=== PATIENT | female | born 1975 | race Caucasian/White ===

== ENCOUNTER → 2020-06-25 10:47 | Outpatient (BNVA) | payer SELFPAY | PROVIDERS: PCP Pediatrics; Referring Provider Pediatrics; Visit Provider Surgery | DX: E66.01 Morbid (severe) obesity due to excess calories (principal); Z68.43 Body mass index [BMI] 50.0-59.9, adult | CPT/HCPCS: 99214 ==

== ENCOUNTER 2020-06-29 13:16 | Outpatient (REF) | payer OTHER, SELFPAY ==
[2020-06-29 15:21] LABS: Iron 70 mcg/dL (30-160); Percent Iron Saturation 19 % (15-50); Total Iron Binding Capacity 377 mcg/dL (228-428); Unsaturated Iron Binding 307 ug/dL
[2020-07-03 12:32] LABS: Vitamin B1 <6 nmol/L (8-30)
== END 2020-06-29 13:17 | disposition home or self-care (01) ==
LOC: HO.LAB 13:16
PROVIDERS: Visit Provider Surgery
DX: E51.9 Thiamine deficiency, unspecified (principal); E61.1 Iron deficiency
CPT/HCPCS: 83540; 84425

== ENCOUNTER → 2020-07-19 13:08 | Outpatient (BNVA) | payer SELFPAY | PROVIDERS: PCP Pediatrics; Visit Provider Physician Assistant | DX: E66.01 Morbid (severe) obesity due to excess calories (principal); Z68.43 Body mass index [BMI] 50.0-59.9, adult | CPT/HCPCS: 99212 ==

== ENCOUNTER → 2020-08-09 12:47 | Outpatient (BNVA) | payer SELFPAY | PROVIDERS: Visit Provider Physician Assistant | DX: E66.01 Morbid (severe) obesity due to excess calories (principal); Z68.42 Body mass index [BMI] 45.0-49.9, adult | CPT/HCPCS: 99212 ==

== ENCOUNTER 2020-08-09 13:39 | Outpatient (REF) | payer OTHER, SELFPAY ==
[2020-08-13 11:19] LABS: Vitamin B1 17 nmol/L (8-30)
== END 2020-08-09 13:40 | disposition home or self-care (01) ==
LOC: HO.LAB 13:39
PROVIDERS: PCP Pediatrics; Visit Provider Surgery
DX: Z01.818 Encounter for other preprocedural examination (principal); E51.9 Thiamine deficiency, unspecified
CPT/HCPCS: 84425

== ENCOUNTER → 2020-08-16 08:20 | Outpatient (BNVA) | payer OTHER, SELFPAY | PROVIDERS: PCP Pediatrics; Referring Provider Pediatrics; Visit Provider Physician Assistant | DX: Z76.89 Persons encountering health services in other specified circumstances (principal) ==

== ENCOUNTER → 2020-08-23 08:34 | Outpatient (BNVA) | payer OTHER, SELFPAY | PROVIDERS: PCP Pediatrics; Referring Provider Pediatrics; Visit Provider Physician Assistant | DX: Z76.89 Persons encountering health services in other specified circumstances (principal) ==

== ENCOUNTER → 2020-09-06 09:09 | Outpatient (BNVA) | payer OTHER, SELFPAY | PROVIDERS: PCP Pediatrics; Visit Provider Physician Assistant | DX: Z76.89 Persons encountering health services in other specified circumstances (principal) ==

== ENCOUNTER → 2020-09-07 15:12 | Outpatient (BNVA) | payer SELFPAY | PROVIDERS: PCP Pediatrics; Visit Provider Internal Medicine Pulmonary Disease | DX: J45.909 Unspecified asthma, uncomplicated (principal); G47.33 Obstructive sleep apnea (adult) (pediatric); Z91.09 Other allergy status, other than to drugs and biological substances; Z99.89 Dependence on other enabling machines and devices; Z87.891 Personal history of nicotine dependence | CPT/HCPCS: 99212 ==

== ENCOUNTER → 2020-09-14 08:25 | Outpatient (BNVA) | payer OTHER, SELFPAY | PROVIDERS: PCP Pediatrics; Visit Provider Surgery | DX: Z76.89 Persons encountering health services in other specified circumstances (principal) ==

== ENCOUNTER → 2021-07-15 11:17 | Outpatient (BNVA) | payer OTHER, SELFPAY | PROVIDERS: PCP Pediatrics; Visit Provider Internal Medicine Pulmonary Disease ==

== ENCOUNTER 2022-03-18 20:53 | Emergency (ER) | payer OTHER, SELFPAY ==
--- NOTE | ~2022-03-18 | US_ITS ---
EXAMINATION: US PELVIS CLINICAL INFORMATION: Left lower pelvic pain. COMPARISON: Abdominal CT 03/18/2022 TECHNIQUE: Ultrasound of the pelvis is performed using both transabdominal and transvaginal transducers along with Doppler. Transvaginal imaging is performed due to inadequate visualization transabdominally. FINDINGS: Uterus: The uterus is anteverted and measures 9.5 x 5.4 x 5.6 cm. The double wall endometrial thickness is 1.5 mm. The uterus is smooth in contour and has normal myometrial echogenicity. No visible fibroid. Adnexa: Both ovaries are visualized. There is normal color flow to the adnexa. There is no ovarian torsion. Trace pelvic free fluid. Right ovary measures 3.9 x 1.8 x 2.9 cm. Corpus luteal cyst measuring 1.6 cm. Left ovary measures 4.4 x 2.5 x 2.9 cm. Dominant follicle measuring 2.1 cm. US/US pelvic ovarian doppler IMPRESSION: No suspicious findings of the pelvis. No evidence of active ovarian torsion. Trace pelvic free fluid may be physiologic.
--- NOTE | ~2022-03-18 | CT_ITS ---
EXAMINATION: CT ABDOMEN AND PELVIS WITHOUT CONTRAST CLINICAL INFORMATION: Left lower quadrant pain COMPARISON: None TECHNIQUE: Multidetector volumetric imaging was performed from the superior aspect of the liver through the pubic symphysis. Sagittal and coronal reformatted images were obtained on the technologist's workstation. This CT examination was performed using dose optimization techniques as appropriate, variously including the following: *Automated exposure control *Adjustment of mA and/or kV according to patient size (this includes techniques or standardized protocols for targeted exams where dose is matched to indication/reason for exam; i.e. extremities or head) *Use of iterative reconstruction technique DLP: 1034 mGy-cm FINDINGS: LUNG BASES: The visualized lung bases are unremarkable. LIVER, GALLBLADDER, AND BILIARY TREE: The liver is normal in size, shape, and attenuation. No focal hepatic lesion or biliary ductal dilatation is present. Cholecystectomy. PANCREAS: Unremarkable. SPLEEN: Unremarkable. ADRENAL GLANDS: Unremarkable. KIDNEYS AND URETERS: The kidneys are normal in size, shape, and attenuation. No hydronephrosis, hydroureter, or calculi seen. No perinephric stranding. BLADDER: Unremarkable. GASTROINTESTINAL TRACT: The stomach is unremarkable. Normal caliber small bowel. No obstruction. No colonic wall thickening or inflammatory change. Normal appendix. No free air or free fluid. ABDOMINAL WALL: No significant hernia is appreciated. LYMPH NODES: Normal. VASCULAR: Normal caliber aorta. 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 PELVIC VISCERA: The uterus and adnexa are unremarkable. OSSEOUS STRUCTURES: No acute or suspicious osseous abnormality. Degenerative changes at L4-L5 with disc space narrowing and vacuum disc phenomenon. CT/CT abdomen pelvis wo con IMPRESSION: No acute findings in the abdomen or pelvis. No acute inflammatory changes. Fleischner guidelines were followed.
--- NOTE | ~2022-03-18 | US_ITS ---
EXAMINATION: US PELVIS CLINICAL INFORMATION: Left lower pelvic pain. COMPARISON: Abdominal CT 03/18/2022 TECHNIQUE: Ultrasound of the pelvis is performed using both transabdominal and transvaginal transducers along with Doppler. Transvaginal imaging is performed due to inadequate visualization transabdominally. FINDINGS: Uterus: The uterus is anteverted and measures 9.5 x 5.4 x 5.6 cm. The double wall endometrial thickness is 1.5 mm. The uterus is smooth in contour and has normal myometrial echogenicity. No visible fibroid. Adnexa: Both ovaries are visualized. There is normal color flow to the adnexa. There is no ovarian torsion. Trace pelvic free fluid. Right ovary measures 3.9 x 1.8 x 2.9 cm. Corpus luteal cyst measuring 1.6 cm. Left ovary measures 4.4 x 2.5 x 2.9 cm. Dominant follicle measuring 2.1 cm. US/US pelvic and transvaginal IMPRESSION: No suspicious findings of the pelvis. No evidence of active ovarian torsion. Trace pelvic free fluid may be physiologic.
[2022-03-18 21:21] VITALS: BP 177/107; PULSE 111; RESP 18; TEMP 37.2; O2SAT 97; BMI 50.5
--- NOTE | 2022-03-18 22:27 | ED.ABDPAIN ---
HPI - Abdominal Pain General Chief Complaint: Abdominal Pain Stated Complaint: Sharp pain in Left stide Time Seen by Provider: 03/18/22 22:27 Source: patient Mode of arrival: ambulatory History of Present Illness HPI narrative: 46-year-old female who presents with left lower quadrant pain that radiates into the groin area has been associated with nausea and she describes as crampy with waxing and waning and is otherwise denying any diarrhea or vomiting and denies any history of renal colic. Patient also describes some difficulty with urination as well as urinary frequency. Related Data Home Medications Medication Instructions Recorded Confirmed citalopram 40 mg tablet 40 mg PO DAILY 06/25/20 09/06/20 epinephrine 0.3 mg/0.3 mL 0.3 mg IM allergies 06/25/20 09/06/20 injection, auto-injector fluticasone propionate 50 1 spray intranasal DAILY PRN 06/25/20 09/06/20 mcg/actuation nasal allergy symptoms spray,suspension (Flonase Allergy Relief) naratriptan 2.5 mg tablet 2.5 mg PO DAILY PRN 06/25/20 09/06/20 topiramate 100 mg tablet 100 mg PO DAILY 06/25/20 09/06/20 trazodone 100 mg tablet 100 mg PO BEDTIME PRN 06/25/20 09/06/20 methocarbamol 750 mg tablet 750 mg PO Q6H PRN muscle spasm 07/15/21 Previous Rx's Medication Instructions Recorded nitrofurantoin 100 mg PO Q12H 5 days #10 caps 03/19/22 monohydrate/macrocrystals 100 mg capsule (Macrobid) phenazopyridine 200 mg tablet 200 mg PO TID PRN pain 6 doses #6 03/19/22 (Pyridium) tabs Allergies Allergy/AdvReac Type Severity Reaction Status Date / Time ibuprofen Allergy Unknown unknown Verified 07/15/21 11:22 penicillin V Allergy Unknown unknown Verified 07/15/21 11:22 Review of Systems Review of Systems Pertinent positives and negatives as stated in HPI 10 point review of systems is otherwise negative. [facility] Past Medical History Source: nursing notes reviewed Medical History Anxiety Arthritis Depression GERD (gastroesophageal reflux disease) History of peptic ulcer disease Migraines Morbid obesity Morbid obesity with BMI of 50.0-59.9, adult PTSD (post-traumatic stress disorder) Surgical History H/O arthroscopy of shoulder H/O shoulder surgery History of arthroscopic knee surgery History of arthroscopic knee surgery Hx laparoscopic cholecystectomy Hx of tubal ligation S/P excision of lipoma S/P insertion of spinal cord stimulator S/P urological surgery Family History Family History Father Renal failure Gout CVD (cardiovascular disease) Heart attack Mother Arthritis Son No problems noted. Son No problems noted. Brother No problems noted. Sister No problems noted. Sister No problems noted. Social History Social History Alcohol intake: never Patient Tobacco Use Status: Current everyday Tobacco user Use of substances other than those prescribed or required for medical reasons: Yes Substance Use Type: Marijuana Substance Use Frequency: Daily Advance Directives: No Advance Directives Information Provided: No Patient : No Physical Exam ED Vital Signs: Vital Signs - 24 hr 03/18/22 21:21 03/18/22 23:43 03/19/22 02:00 Temperature 99 F Pulse Rate 111 H 80 84 Respiratory Rate 18 18 18 Blood Pressure 177/107 H 134/76 128/70 Pulse Oximetry 97 97 Oxygen Delivery Method Room Air Room Air BMI result Body Mass Index 50.5 VITAL SIGNS: Reviewed. GENERAL: Elevated BMI, Well developed, well nourished, in no acute distress. HEAD: Normocephalic/atraumatic EYES: PERRLA, EOMI EARS: Ext canals without abnormality OROPHARYNX: no oral lesions noted, posterior pharynx clear LUNGS: Normal breath sounds. No adventitious sounds or accessory muscle use. SpO2<97> CARDIOVASCULAR: Regular rate and rhythm without noted murmurs ABDOMEN: Soft, non-tender, non-distended with bowel sounds. SKIN: Inspection of the skin reveals no rashes NEUROLOGIC: Alert and oriented x 4. Procedures EJ/Peripheral Line Arm L: Time Out Performed: No Skin Cleansed in Sterile Fashion: Yes Size (gauge): 18 IV Secured and Dressing Applied: Yes Patient Tolerated Procedure: well Additional Comments: Placed by ultrasound, 18 gauge Course Course Course Narrative: 2230: 46-year-old female with history and clinical presentation suggestive possible renal colic, UTI, diverticulitis Review of all investigations consistent with cystitis. All results discussed with patient at bedside. MDM - Abdominal Pain Lab Data Result diagrams: 03/18/22 22:38 03/18/22 22:38 Labs: Lab Results 03/18/22 03/18/22 03/18/22 Range/Units 22:38 22:38 22:38 WBC 13.3 H (4.8-10.8) X10*3/uL RBC 4.11 L (4.20-5.50) X10*6/uL Hgb 13.2 (12.0-16.0) g/dl Hct 38.1 (37.0-47.0) % MCV 92.7 (80.0-98.0) fL MCH 32.1 (27.0-33.0) pg MCHC 34.6 (31.0-35.0) g/dl RDW 12.3 (11.0-16.0) % Plt Count 318 (160-400) X10*3/uL MPV 9.0 L (9.4-12.3) fL Immature Gran % (Auto) 0.6 H (0.0-0.4) % Neut % (Auto) 62.3 (45-73) % Lymph % (Auto) 26.4 (20-40) % Barber % (Auto) 7.9 (2-11) % Eos % (Auto) 2.4 (0-4) % Baso % (Auto) 0.4 (0-2) % Lymph # (Auto) 3.5 (1.2-4.9) X10*3/uL Barber # (Auto) 1.1 (0.1-1.2) X10*3/uL Eos # (Auto) 0.3 (0.0-0.4) X10*3/uL Baso # (Auto) 0.1 (0.0-0.2) X10*3/uL Abs Immat Gran (auto) 0.08 H (0.00-0.03) X10*3/uL Absolute Neuts (auto) 8.3 (2.0-8.3) x10*3/uL Absolute Nucleated RBC 0.000 (0.0-0.012) X10*3/uL Nucleated RBC % (auto) 0.0 (0.0-0.2) /100WBC Sodium 141 (135-145) mmol/L Potassium 3.8 (3.3-5.1) mmol/L Chloride 104 (96-108) mmol/L Carbon Dioxide 27 (22-29) mmol/L Anion Gap 14 (12-20) BUN 12 (9-16) mg/dL Creatinine 1.01 (0.5-1.4) mg/dL Estim Creat Clear Calc 91.3 Estimated GFR 59 Random Glucose 118 H (60-115) mg/dL Lactic Acid 2.2 H* (0.5-2.0) mmol/L Calcium 10.1 (8.4-10.2) mg/dL Total Bilirubin 0.3 (0.0-1.0) mg/dL AST 20 (5-31) U/L ALT 27 (0-31) U/L Alkaline Phosphatase 59 (39-117) U/L Total Protein 7.3 (6.5-8.0) g/dL Albumin 4.5 (3.5-5.0) g/dL Urine Color Urine Appearance Urine pH (5.0-8.0) Ur Specific [place] (1.005-1.025) Urine Protein (NEG-TRACE) MG/DL Urine Glucose (UA) (NEG) MG/DL Urine Ketones (NEG) MG/DL Urine Blood (NEG) Urine Nitrite (NEG) Ur Leukocyte Esterase (NEG) Urine RBC (0) /HPF Urine WBC (0-4) /HPF Ur Squamous Epith Cells /LPF Uric Acid Crystals /LPF Urine Bacteria /LPF 03/18/22 Range/Units 22:38 WBC (4.8-10.8) X10*3/uL RBC (4.20-5.50) X10*6/uL Hgb (12.0-16.0) g/dl Hct (37.0-47.0) % MCV (80.0-98.0) fL MCH (27.0-33.0) pg MCHC (31.0-35.0) g/dl RDW (11.0-16.0) % Plt Count (160-400) X10*3/uL MPV (9.4-12.3) fL Immature Gran % (Auto) (0.0-0.4) % Neut % (Auto) (45-73) % Lymph % (Auto) (20-40) % Barber % (Auto) (2-11) % Eos % (Auto) (0-4) % Baso % (Auto) (0-2) % Lymph # (Auto) (1.2-4.9) X10*3/uL Barber # (Auto) (0.1-1.2) X10*3/uL Eos # (Auto) (0.0-0.4) X10*3/uL Baso # (Auto) (0.0-0.2) X10*3/uL Abs Immat Gran (auto) (0.00-0.03) X10*3/uL Absolute Neuts (auto) (2.0-8.3) x10*3/uL Absolute Nucleated RBC (0.0-0.012) X10*3/uL Nucleated RBC % (auto) (0.0-0.2) /100WBC Sodium (135-145) mmol/L Potassium (3.3-5.1) mmol/L Chloride (96-108) mmol/L Carbon Dioxide (22-29) mmol/L Anion Gap (12-20) BUN (9-16) mg/dL Creatinine (0.5-1.4) mg/dL Estim Creat Clear Calc Estimated GFR Random Glucose (60-115) mg/dL Lactic Acid (0.5-2.0) mmol/L Calcium (8.4-10.2) mg/dL Total Bilirubin (0.0-1.0) mg/dL AST (5-31) U/L ALT (0-31) U/L Alkaline Phosphatase (39-117) U/L Total Protein (6.5-8.0) g/dL Albumin (3.5-5.0) g/dL Urine Color YELLOW Urine Appearance HAZY Urine pH 5.5 (5.0-8.0) Ur Specific [place] >= 1.030 H (1.005-1.025) Urine Protein NEG (NEG-TRACE) MG/DL Urine Glucose (UA) NEG (NEG) MG/DL Urine Ketones 5 (NEG) MG/DL Urine Blood NEG (NEG) Urine Nitrite NEG (NEG) Ur Leukocyte Esterase 1+ H (NEG) Urine RBC 0 (0) /HPF Urine WBC 0-2 (0-4) /HPF Ur Squamous Epith Cells 2+ /LPF Uric Acid Crystals 2+ /LPF Urine Bacteria 1+ /LPF Discharge Plan Discharge Clinical Impression: Cystitis Patient Disposition: Home, Self-Care Instructions: Urinary Tract Infection in Women (ED) Additional Instructions: 1. Recommend [id number] Tylenol/ibuprofen as needed for pain control. Although the pyridium that you have been prescribed will help out significantly with the bladder pain. 2. Complete the entire course of antibiotics as ordered. Return to the ER for worsening symptoms. Prescriptions: New nitrofurantoin monohyd/m-cryst [Macrobid] 100 mg capsule 100 mg PO Q12H 5 Days Qty: 10 0RF Rx Instructions: must administer with a meal/food phenazopyridine [Pyridium] 200 mg tablet 200 mg PO TID PRN (Reason: pain) Qty: 6 0RF No Action naratriptan 2.5 mg tablet 2.5 mg PO DAILY PRN trazodone 100 mg tablet 100 mg PO BEDTIME PRN citalopram 40 mg tablet 40 mg PO DAILY topiramate 100 mg tablet 100 mg PO DAILY epinephrine 0.3 mg/0.3 mL auto-injector 0.3 mg IM fluticasone propionate [Flonase Allergy Relief] 50 mcg/actuation spray,suspension 1 spray intranasal DAILY PRN (Reason: allergy symptoms) Rx Instructions: administer into each nostril Referrals: Bettina Griggs MD [Primary Care Provider] -
[2022-03-18] MEDS: 0.9 % Sodium Chloride 1,000 ML 999 ML IV (22:45)
[2022-03-18] MEDS: HYDROmorphone HCl 0.5 MG/0.5 ML SYRINGE 0.25 MG IVPUSH (22:45)
[2022-03-18 22:46] LABS: MANUAL DIFF FLAG NO
[2022-03-18 22:48] LABS: Appearance Urine HAZY; Basophils Absolute Auto 0.1 X10*3/uL (0.0-0.2); Basophils Percent Auto 0.4 % (0-2); Color Urine YELLOW; Eosinophils Absolute Auto 0.3 X10*3/uL (0.0-0.4); Eosinophils Percent Auto 2.4 % (0-4); Glucose Urine UA NEG (NEG); Hematocrit 38.1 % (37.0-47.0); Hemoglobin 13.2 g/dl (12.0-16.0); Imm Gran Abs Auto 0.08 X10*3/uL (0.00-0.03); Imm Gran Pct Auto 0.6 % (0.0-0.4); Leukocyte Esterase Urine 1+ (NEG); Lymphocytes Absolute Auto 3.5 X10*3/uL (1.2-4.9); Lymphocytes Percent Auto 26.4 % (20-40); Mean Corpuscular HGB Conc 34.6 g/dl (31.0-35.0); Mean Corpuscular Hemoglobin 32.1 pg (27.0-33.0); Mean Corpuscular Volume 92.7 fL (80.0-98.0); Monocytes Absolute Auto 1.1 X10*3/uL (0.1-1.2); Monocytes Percent Auto 7.9 % (2-11); Neutrophils Absolute Auto 8.3 x10*3/uL (2.0-8.3); Neutrophils Percent Auto 62.3 % (45-73); Nitrite Urine NEG (NEG); PH 5.5 (5.0-8.0); Platelet Count 318 X10*3/uL (160-400); Red Blood Count 4.11 X10*6/uL (4.20-5.50); Red Cell Distribution Width 12.3 % (11.0-16.0); Specific Gravity - Urine >= 1.030 (1.005-1.025); UACC Culture Trigger YES; Urine Blood NEG (NEG); Urine Ketones 5 MG/DL (NEG); Urine Protein NEG (NEG-TRACE); White Blood Count 13.3 X10*3/uL (4.8-10.8)
[2022-03-18 23:00] LABS: Bacteria Urine 1+ /LPF; RBC Urine 0 /HPF (0); Squamous Epithelial Cell Urine 2+ /LPF; WBC Urine 0-2 /HPF (0-4)
[2022-03-18 23:02] LABS: Uric Acid Crystals Urine 2+ /LPF
[2022-03-18 23:23] LABS: Lactic Acid 2.2 mmol/L (0.5-2.0)
[2022-03-18 23:36] LABS: Alanine Aminotransferase 27 U/L (0-31); Albumin Level 4.5 g/dL (3.5-5.0); Alkaline Phosphatase 59 U/L (39-117); Anion Gap 14 (12-20); Aspartate Amino Transferase 20 U/L (5-31); Bilirubin Total 0.3 mg/dL (0.0-1.0); Blood Urea Nitrogen 12 mg/dL (9-16); Calcium 10.1 mg/dL (8.4-10.2); Carbon Dioxide 27 mmol/L (22-29); Chloride 104 mmol/L (96-108); Creatinine Clr Calc Pharmacy 91.3; Estimated Glomerular Filt Rate 59; Glucose Random 118 mg/dL (60-115); Potassium 3.8 mmol/L (3.3-5.1); Sodium 141 mmol/L (135-145); Total Protein 7.3 g/dL (6.5-8.0)
[2022-03-18 23:43] VITALS: BP 134/76; PULSE 80; RESP 18
[2022-03-19] MEDS: cefTRIAXone sodium 1 GM in 0.9 % Sodium Chloride 50 ML IV (00:13)
--- NOTE | 2022-03-19 00:17 | PC.NURSE ---
administered meds per MAR
[2022-03-19] MEDS: HYDROmorphone HCl 0.5 MG/0.5 ML SYRINGE IVPUSH (00:31)
--- NOTE | 2022-03-19 00:39 | PC.NURSE ---
administered medication to pt per MAR
[2022-03-19 00:43] LABS: Reflex Lactate? Lactic Acid Added
[2022-03-19 02:00] VITALS: BP 128/70; PULSE 84; RESP 18; O2SAT 97
[2022-03-19 02:54] LABS: COVID-19 Test Positive (Negative); IDNOW Serial# 16C4AD1C
[2022-03-19 02:56] LABS: ~Lactic Acid-LAB USE ONLY 1.1 mmol/L (0.5-2.0)
[2022-03-19] MEDS: Phenazopyridine HCL 200 MG TABLET PO (03:11)
== END 2022-03-19 03:19 | disposition home or self-care (01) ==
PROVIDERS: Emergency Provider Student in an Organized Health Care Education/Training Program; PCP Internal Medicine
DX: N30.90 Cystitis, unspecified without hematuria (principal); R10.32 Left lower quadrant pain; R33.9 Retention of urine, unspecified; R10.2 Pelvic and perineal pain; R35.0 Frequency of micturition; Z20.822 Contact with and (suspected) exposure to COVID-19; Z79.899 Other long term (current) drug therapy; F17.200 Nicotine dependence, unspecified, uncomplicated; Z71.6 Tobacco abuse counseling
CPT/HCPCS: 36415; 74176; 76830; 76856; 80053; 81001; 83605; 85025; 87040; 87086; 87635; 93975; 96361; 96374; 96375; 96376; 99284; 99285; J0696; J1170

== ENCOUNTER 2022-05-12 13:03 | Emergency (ER) | payer OTHER, SELFPAY ==
--- NOTE | ~2022-05-12 | XR_ITS ---
EXAMINATION: XR CHEST CLINICAL INFORMATION: Chest pain COMPARISON: Chest x-ray 07/09/2018 TECHNIQUE: Frontal portable view of the chest was obtained. 2:10 PM FINDINGS: No acute abnormality. The lungs are normally aerated. No pulmonary vascular congestion. Heart size is normal. The cardiac and mediastinal contours are normal. There is a neural stimulator device over the mid thoracic spine redemonstrated. Widening of the acromioclavicular joint is chronic unchanged since prior studies. XR/XR chest 1V IMPRESSION: No acute abnormality of the chest.
--- NOTE | 2022-05-12 13:12 | ECG_ITS ---
Test Reason : CHEST PRESSURE Blood Pressure : / mmHG Vent. Rate : 077 BPM Atrial Rate : 077 BPM P-R Int : 158 ms QRS Dur : 080 ms QT Int : 388 ms P-R-T Axes : 060 064 056 degrees QTc Int : 439 ms Normal sinus rhythm Cannot rule out Anterior infarct , age undetermined Abnormal ECG When compared with ECG of 13-APR-2020 09:52, No significant change was found Referred By: Generic ED Physician Electronically Signed By:RAFFAELE MILLER
[2022-05-12 13:28] VITALS: BP 119/71; BP 120/80; PULSE 76; PULSE 82; RESP 18; O2SAT 100; O2SAT 95; BMI 56.4
--- NOTE | 2022-05-12 13:42 | ED_ITS ---
HPI - Chest Pain General Chief Complaint: Chest Pain Stated Complaint: CHEST PRESSURE/ DIFF BREATHING Time Seen by Provider: 05/12/22 13:34 Source: patient Mode of arrival: ambulatory Limitations: no limitations History of Present Illness HPI narrative: 46-year-old female presents to the ED for midsternal chest tightness that occurred during a drive thrus. Patient states at that time chest tightness pain level was a 10. Patient now states pain level is a 2. Patient denies any lower extremity swelling, calf pain, coughing up blood, recent long travel, recent surgery, estrogen hormonal/ control use. Patient denies having any cold sweats or any shortness of breath. Patient also states she had epigastric pain also. MD complaint: chest discomfort Related Data Home Medications Medication Instructions Recorded Confirmed citalopram 40 mg tablet 40 mg PO DAILY 06/25/20 09/06/20 epinephrine 0.3 mg/0.3 mL 0.3 mg IM allergies 06/25/20 09/06/20 injection, auto-injector fluticasone propionate 50 1 spray intranasal DAILY PRN 06/25/20 09/06/20 mcg/actuation nasal allergy symptoms spray,suspension (Flonase Allergy Relief) naratriptan 2.5 mg tablet 2.5 mg PO DAILY PRN 06/25/20 09/06/20 topiramate 100 mg tablet 100 mg PO DAILY 06/25/20 09/06/20 trazodone 100 mg tablet 100 mg PO BEDTIME PRN 06/25/20 09/06/20 methocarbamol 750 mg tablet 750 mg PO Q6H PRN muscle spasm 07/15/21 Previous Rx's Medication Instructions Recorded nitrofurantoin 100 mg PO Q12H 5 days #10 caps 03/19/22 monohydrate/macrocrystals 100 mg capsule (Macrobid) phenazopyridine 200 mg tablet 200 mg PO TID PRN pain 6 doses #6 03/19/22 (Pyridium) tabs famotidine 20 mg tablet (Pepcid) 20 mg PO BID 10 days #20 tabs 05/12/22 nitrofurantoin 100 mg PO Q12H 7 days #14 caps 05/12/22 monohydrate/macrocrystals 100 mg capsule (Macrobid) Allergies Allergy/AdvReac Type Severity Reaction Status Date / Time ibuprofen Allergy Unknown unknown Verified 11/05/21 11:22 penicillin V Allergy Unknown unknown Verified 07/15/21 11:22 Review of Systems Review of Systems: chest discomfot. epigastric pain Yes all other systems are reviewed and are negative [facility] Past Medical History Medical History Anxiety Arthritis Depression GERD (gastroesophageal reflux disease) History of peptic ulcer disease Migraines Morbid obesity Morbid obesity with BMI of 50.0-59.9, adult PTSD (post-traumatic stress disorder) Surgical History H/O arthroscopy of shoulder H/O shoulder surgery History of arthroscopic knee surgery History of arthroscopic knee surgery Hx laparoscopic cholecystectomy Hx of tubal ligation S/P excision of lipoma S/P insertion of spinal cord stimulator S/P urological surgery Family History Family History Father Renal failure Gout CVD (cardiovascular disease) Heart attack Mother Arthritis Son No problems noted. Son No problems noted. Brother No problems noted. Sister No problems noted. Sister No problems noted. Social History Social History Alcohol intake: never Patient Tobacco Use Status: Current everyday Tobacco user Smoked in Last 30 Days: Yes Use of substances other than those prescribed or required for medical reasons: No Substance Use Type: Marijuana Advance Directives: Yes Advance Directives Information Provided: Yes Advance Directives on File: No Physical Exam Vital Signs: Vital Signs: Last Vital Signs Temp 98.2 F 05/12/22 17:31 Pulse 101 H 05/12/22 18:55 Resp 13 05/12/22 18:55 BP 109/61 05/12/22 18:55 Pulse Ox 99 05/12/22 18:55 O2 Del Method 05/12/22 18:55 BMI result Body Mass Index 56.4 Const: General: cooperative, healthy appearing, comfortable, no acute distress, well developed, alert, awake and Physically active Orientation/consciousness: patient oriented x3 HEENT: Head: Yes normal to inspection, Yes No palpable skull fracture present, Yes normocephalic, Yes atraumatic and No abrasion Eyes: General: appearance normal, both eyes and all related structures Neck: Neck: Yes normal visual inspection, Yes full ROM, Yes no lymphadenopathy, Yes no meningeal signs, Yes trachea midline, Yes supple, No anterior neck swelling and No tender Chest: Chest palpation & inspection: normal inspection of the chest Chest/axillae images: 1. Positive for chest wall tenderness on palpation. Negative for any erythema, rash, breast swelling, nipple discharge, or mass on palpation. Resp: Effort & Inspection: normal respiratory effort and able to speak in complete sentences Auscultation: clear to auscultation bilaterally Cardio: Jugular venous distension: no JVD Heart sounds: S1 normal heart sound present and S2 normal heart sound present GI: Inspection: Yes normal to inspection and No abdominal wall ecchymosis Palpation (GI): Soft to palpation, not firm, nontender, no guarding and not rigid : General: No CVA tenderness and Yes no CVA tenderness Back/Spine/Pelvis: Back: no CVA tenderness, No CVA tenderness and No back tenderness Skin: General skin exam: no rashes or lesions noted and elasticity normal Neuro: General: patient oriented x3, gait normal, no meningeal signs and CN's II-XI intact bilaterally Cranial nerves: Yes CN's II-XII intact bilaterally Extrem: Other: Lower extremities negative for swelling, pitting edema, or calf tenderness Psych: Appearance: grossly normal, well kempt and not disheveled Course Course Course Narrative: Patient will have a cardiac evaluation. Patient states pain level is a 2. Patient received aspirin in EMT. Systolic blood pressure 119 so would not give nitrates. Also chest pain improved. Reevaluation(s) Reevaluation #1: EKG negative STEMI. First troponin negative. BNP negative. D-dimer negative. Perc score 0. Patient now states having acid burning sensation in epigastric and mid chest sternal area. Will give GI cocktail. Time: 14:46 Reevaluation #2: Second troponin is negative. patient burning acid sensation resolved. patient informed to follow up with PCP for follow up for referral to cardiology and GI. Time: 19:10 MDM - Chest Pain MDM Narrative Medical decision making narrative: GERD, Chest pain Lab Data Result diagrams: 05/12/22 14:13 05/12/22 14:13 Labs: Lab Results 05/12/22 05/12/22 05/12/22 Range/Units 14:13 14:13 14:13 WBC 9.2 (4.8-10.8) X10*3/uL RBC 3.92 L (4.20-5.50) X10*6/uL Hgb 12.7 (12.0-16.0) g/dl Hct 36.4 L (37.0-47.0) % MCV 92.9 (80.0-98.0) fL MCH 32.4 (27.0-33.0) pg MCHC 34.9 (31.0-35.0) g/dl RDW 12.3 (11.0-16.0) % Plt Count 272 (160-400) X10*3/uL MPV 8.9 L (9.4-12.3) fL Immature Gran % (Auto) 0.4 (0.0-0.4) % Neut % (Auto) 59.5 (45-73) % Lymph % (Auto) 27.7 (20-40) % [place] % (Auto) 7.4 (2-11) % Eos % (Auto) 4.2 H (0-4) % Baso % (Auto) 0.8 (0-2) % Lymph # (Auto) 2.5 (1.2-4.9) X10*3/uL [place] # (Auto) 0.7 (0.1-1.2) X10*3/uL Eos # (Auto) 0.4 (0.0-0.4) X10*3/uL Baso # (Auto) 0.1 (0.0-0.2) X10*3/uL Abs Immat Gran (auto) 0.04 H (0.00-0.03) X10*3/uL Absolute Neuts (auto) 5.5 (2.0-8.3) x10*3/uL Absolute Nucleated RBC 0.000 (0.0-0.012) X10*3/uL Nucleated RBC % (auto) 0.0 (0.0-0.2) /100WBC PT 11.0 (10.0-13.1) SEC INR 1.0 (0.9-1.1) APTT 30.2 (26.0-36.4) SEC D-Dimer High Sensitivty < 150 NG/ML Sodium 136 (135-145) mmol/L Potassium 3.9 (3.3-5.1) mmol/L Chloride 105 (96-108) mmol/L Carbon Dioxide 20 L (22-29) mmol/L Anion Gap 15 (12-20) BUN 7 L (9-16) mg/dL Creatinine 0.86 (0.5-1.4) mg/dL Estim Creat Clear Calc 115.1 Estimated GFR > 60 Random Glucose 96 (60-115) mg/dL Calcium 9.0 D (8.4-10.2) mg/dL Total Bilirubin 0.8 (0.0-1.0) mg/dL AST 25 (5-31) U/L ALT 27 (0-31) U/L Alkaline Phosphatase 57 (39-117) U/L Troponin I High Sens (<3.5-17.0) ng/L B-Natriuretic Peptide (<100) pg/mL Total Protein 7.3 (6.5-8.0) g/dL Albumin 4.4 (3.5-5.0) g/dL Lipase (8-78) U/L Urine Color Urine Appearance Urine pH (5.0-9.0) Ur Specific [place] (1.005-1.025) Urine Protein (Neg-Trace) mg/dL Urine Glucose (UA) (Negative) mg/dL Urine Ketones (Negative) mg/dL Urine Blood (Negative) Urine Nitrite (Negative) Ur Leukocyte Esterase (Negative) Urine RBC (0-2) /HPF Urine WBC (0-5) /HPF Ur Squamous Epith Cells (0-2) /HPF Urine Bacteria (None Seen) Hyaline Casts (0-2) /LPF Urine Test (NEGATIVE) Urine Opiates Screen (Not Detect) Urine Fentanyl Screen (Not Detect) Ur Barbiturates Screen (Not Detect) Ur Phencyclidine Scrn (Not Detect) Ur Amphetamines Screen (Not Detect) U Benzodiazepines Scrn (Not Detect) Urine Cocaine Screen (Not Detect) U Marijuana (THC) Screen (Not Detect) COVID-19 (FARZAD) (Negative) COVID-19 Clin Com 05/12/22 05/12/22 05/12/22 Range/Units 14:13 14:13 14:13 WBC (4.8-10.8) X10*3/uL RBC (4.20-5.50) X10*6/uL Hgb (12.0-16.0) g/dl Hct (37.0-47.0) % MCV (80.0-98.0) fL MCH (27.0-33.0) pg MCHC (31.0-35.0) g/dl RDW (11.0-16.0) % Plt Count (160-400) X10*3/uL MPV (9.4-12.3) fL Immature Gran % (Auto) (0.0-0.4) % Neut % (Auto) (45-73) % Lymph % (Auto) (20-40) % [place] % (Auto) (2-11) % Eos % (Auto) (0-4) % Baso % (Auto) (0-2) % Lymph # (Auto) (1.2-4.9) X10*3/uL [place] # (Auto) (0.1-1.2) X10*3/uL Eos # (Auto) (0.0-0.4) X10*3/uL Baso # (Auto) (0.0-0.2) X10*3/uL Abs Immat Gran (auto) (0.00-0.03) X10*3/uL Absolute Neuts (auto) (2.0-8.3) x10*3/uL Absolute Nucleated RBC (0.0-0.012) X10*3/uL Nucleated RBC % (auto) (0.0-0.2) /100WBC PT (10.0-13.1) SEC INR (0.9-1.1) APTT (26.0-36.4) SEC D-Dimer High Sensitivty NG/ML Sodium (135-145) mmol/L Potassium (3.3-5.1) mmol/L Chloride (96-108) mmol/L Carbon Dioxide (22-29) mmol/L Anion Gap (12-20) BUN (9-16) mg/dL Creatinine (0.5-1.4) mg/dL Estim Creat Clear Calc Estimated GFR Random Glucose (60-115) mg/dL Calcium (8.4-10.2) mg/dL Total Bilirubin (0.0-1.0) mg/dL AST (5-31) U/L ALT (0-31) U/L Alkaline Phosphatase (39-117) U/L Troponin I High Sens < 3.5 (<3.5-17.0) ng/L B-Natriuretic Peptide < 10 (<100) pg/mL Total Protein (6.5-8.0) g/dL Albumin (3.5-5.0) g/dL Lipase 14 (8-78) U/L Urine Color Urine Appearance Urine pH (5.0-9.0) Ur Specific [place] (1.005-1.025) Urine Protein (Neg-Trace) mg/dL Urine Glucose (UA) (Negative) mg/dL Urine Ketones (Negative) mg/dL Urine Blood (Negative) Urine Nitrite (Negative) Ur Leukocyte Esterase (Negative) Urine RBC (0-2) /HPF Urine WBC (0-5) /HPF Ur Squamous Epith Cells (0-2) /HPF Urine Bacteria (None Seen) Hyaline Casts (0-2) /LPF Urine Test (NEGATIVE) Urine Opiates Screen (Not Detect) Urine Fentanyl Screen (Not Detect) Ur Barbiturates Screen (Not Detect) Ur Phencyclidine Scrn (Not Detect) Ur Amphetamines Screen (Not Detect) U Benzodiazepines Scrn (Not Detect) Urine Cocaine Screen (Not Detect) U Marijuana (THC) Screen (Not Detect) COVID-19 (FARZAD) Negative (Negative) COVID-19 Clin Com See Note 05/12/22 05/12/22 05/12/22 Range/Units 16:17 16:17 16:17 WBC (4.8-10.8) X10*3/uL RBC (4.20-5.50) X10*6/uL Hgb (12.0-16.0) g/dl Hct (37.0-47.0) % MCV (80.0-98.0) fL MCH (27.0-33.0) pg MCHC (31.0-35.0) g/dl RDW (11.0-16.0) % Plt Count (160-400) X10*3/uL MPV (9.4-12.3) fL Immature Gran % (Auto) (0.0-0.4) % Neut % (Auto) (45-73) % Lymph % (Auto) (20-40) % [place] % (Auto) (2-11) % Eos % (Auto) (0-4) % Baso % (Auto) (0-2) % Lymph # (Auto) (1.2-4.9) X10*3/uL [place] # (Auto) (0.1-1.2) X10*3/uL Eos # (Auto) (0.0-0.4) X10*3/uL Baso # (Auto) (0.0-0.2) X10*3/uL Abs Immat Gran (auto) (0.00-0.03) X10*3/uL Absolute Neuts (auto) (2.0-8.3) x10*3/uL Absolute Nucleated RBC (0.0-0.012) X10*3/uL Nucleated RBC % (auto) (0.0-0.2) /100WBC PT (10.0-13.1) SEC INR (0.9-1.1) APTT (26.0-36.4) SEC D-Dimer High Sensitivty NG/ML Sodium (135-145) mmol/L Potassium (3.3-5.1) mmol/L Chloride (96-108) mmol/L Carbon Dioxide (22-29) mmol/L Anion Gap (12-20) BUN (9-16) mg/dL Creatinine (0.5-1.4) mg/dL Estim Creat Clear Calc Estimated GFR Random Glucose (60-115) mg/dL Calcium (8.4-10.2) mg/dL Total Bilirubin (0.0-1.0) mg/dL AST (5-31) U/L ALT (0-31) U/L Alkaline Phosphatase (39-117) U/L Troponin I High Sens (<3.5-17.0) ng/L B-Natriuretic Peptide (<100) pg/mL Total Protein (6.5-8.0) g/dL Albumin (3.5-5.0) g/dL Lipase (8-78) U/L Urine Color Yellow Urine Appearance Clear Urine pH 6.5 (5.0-9.0) Ur Specific [place] 1.015 (1.005-1.025) Urine Protein Negative (Neg-Trace) mg/dL Urine Glucose (UA) Negative (Negative) mg/dL Urine Ketones Trace (Negative) mg/dL Urine Blood Negative (Negative) Urine Nitrite Negative (Negative) Ur Leukocyte Esterase Small (1+) H (Negative) Urine RBC 3-5 H (0-2) /HPF Urine WBC 0-5 (0-5) /HPF Ur Squamous Epith Cells 3-5 (0-2) /HPF Urine Bacteria Trace (None Seen) Hyaline Casts 0-2 (0-2) /LPF Urine Test NEGATIVE (NEGATIVE) Urine Opiates Screen Not Detected (Not Detect) Urine Fentanyl Screen Not Detected (Not Detect) Ur Barbiturates Screen Not Detected (Not Detect) Ur Phencyclidine Scrn Not Detected (Not Detect) Ur Amphetamines Screen Not Detected (Not Detect) U Benzodiazepines Scrn Not Detected (Not Detect) Urine Cocaine Screen Not Detected (Not Detect) U Marijuana (THC) Screen POSITIVE H (Not Detect) COVID-19 (FARZAD) (Negative) COVID-19 Clin Com 05/12/22 Range/Units 17:06 WBC (4.8-10.8) X10*3/uL RBC (4.20-5.50) X10*6/uL Hgb (12.0-16.0) g/dl Hct (37.0-47.0) % MCV (80.0-98.0) fL MCH (27.0-33.0) pg MCHC (31.0-35.0) g/dl RDW (11.0-16.0) % Plt Count (160-400) X10*3/uL MPV (9.4-12.3) fL Immature Gran % (Auto) (0.0-0.4) % Neut % (Auto) (45-73) % Lymph % (Auto) (20-40) % [place] % (Auto) (2-11) % Eos % (Auto) (0-4) % Baso % (Auto) (0-2) % Lymph # (Auto) (1.2-4.9) X10*3/uL [place] # (Auto) (0.1-1.2) X10*3/uL Eos # (Auto) (0.0-0.4) X10*3/uL Baso # (Auto) (0.0-0.2) X10*3/uL Abs Immat Gran (auto) (0.00-0.03) X10*3/uL Absolute Neuts (auto) (2.0-8.3) x10*3/uL Absolute Nucleated RBC (0.0-0.012) X10*3/uL Nucleated RBC % (auto) (0.0-0.2) /100WBC PT (10.0-13.1) SEC INR (0.9-1.1) APTT (26.0-36.4) SEC D-Dimer High Sensitivty NG/ML Sodium (135-145) mmol/L Potassium (3.3-5.1) mmol/L Chloride (96-108) mmol/L Carbon Dioxide (22-29) mmol/L Anion Gap (12-20) BUN (9-16) mg/dL Creatinine (0.5-1.4) mg/dL Estim Creat Clear Calc Estimated GFR Random Glucose (60-115) mg/dL Calcium (8.4-10.2) mg/dL Total Bilirubin (0.0-1.0) mg/dL AST (5-31) U/L ALT (0-31) U/L Alkaline Phosphatase (39-117) U/L Troponin I High Sens < 3.5 (<3.5-17.0) ng/L B-Natriuretic Peptide (<100) pg/mL Total Protein (6.5-8.0) g/dL Albumin (3.5-5.0) g/dL Lipase (8-78) U/L Urine Color Urine Appearance Urine pH (5.0-9.0) Ur Specific [place] (1.005-1.025) Urine Protein (Neg-Trace) mg/dL Urine Glucose (UA) (Negative) mg/dL Urine Ketones (Negative) mg/dL Urine Blood (Negative) Urine Nitrite (Negative) Ur Leukocyte Esterase (Negative) Urine RBC (0-2) /HPF Urine WBC (0-5) /HPF Ur Squamous Epith Cells (0-2) /HPF Urine Bacteria (None Seen) Hyaline Casts (0-2) /LPF Urine Test (NEGATIVE) Urine Opiates Screen (Not Detect) Urine Fentanyl Screen (Not Detect) Ur Barbiturates Screen (Not Detect) Ur Phencyclidine Scrn (Not Detect) Ur Amphetamines Screen (Not Detect) U Benzodiazepines Scrn (Not Detect) Urine Cocaine Screen (Not Detect) U Marijuana (THC) Screen (Not Detect) COVID-19 (FARZAD) (Negative) COVID-19 Clin Com ECG Data ECG #1: Interpretation: NOrmal Sinus rhythm. Ventricular rate 77. Pr interval 158. QRS 80. QTC 439. Negative STEMI Discharge Plan Discharge Clinical Impression: Atypical chest pain, Gastroesophageal reflux disease, UTI (urinary tract infection) Patient Disposition: Home, Self-Care Instructions: Chest Pain (ED), Urinary Tract Infection in Women (ED), Gastroesophageal Reflux Disease (ED) Additional Instructions: Your blood work EKG him back negative for signs of acute heart attack or risk of blood clot. Chest x-ray came back normal. COVID swab came back negative. Blood work came back negative for signs of heart failure. Please follow-up with your primary care provider for referral for Cardiology and Gastroenterology if indicated. Return to the ED immediately for chest pain, shortness of breath, abdominal pain, vomiting, worsening acid burning sensation, leg swelling, calf pain, coughing up blood, pain inspiration, or any other concerning symptoms. Prescriptions: New famotidine [Pepcid] 20 mg tablet 20 mg PO BID 10 Days Qty: 20 0RF nitrofurantoin monohyd/m-cryst [Macrobid] 100 mg capsule 100 mg PO Q12H 7 Days Qty: 14 0RF Rx Instructions: must administer with a meal/food No Action nitrofurantoin monohyd/m-cryst [Macrobid] 100 mg capsule 100 mg PO Q12H 5 Days Qty: 10 0RF Rx Instructions: must administer with a meal/food phenazopyridine [Pyridium] 200 mg tablet 200 mg PO TID PRN (Reason: pain) Qty: 6 0RF naratriptan 2.5 mg tablet 2.5 mg PO DAILY PRN trazodone 100 mg tablet 100 mg PO BEDTIME PRN citalopram 40 mg tablet 40 mg PO DAILY topiramate 100 mg tablet 100 mg PO DAILY epinephrine 0.3 mg/0.3 mL auto-injector 0.3 mg IM fluticasone propionate [Flonase Allergy Relief] 50 mcg/actuation spray,suspension 1 spray intranasal DAILY PRN (Reason: allergy symptoms) Rx Instructions: administer into each nostril Stand Alone Forms: Work/School Release Interventions: ED Discharge Assessment Last Done: 05/12/22 19:38 Discharge Date/Time: 05/12/22 19:35 Print Language: [place]
[2022-05-12 14:16] LABS: MANUAL DIFF FLAG NO
[2022-05-12 14:18] LABS: Basophils Absolute Auto 0.1 X10*3/uL (0.0-0.2); Basophils Percent Auto 0.8 % (0-2); Eosinophils Absolute Auto 0.4 X10*3/uL (0.0-0.4); Eosinophils Percent Auto 4.2 % (0-4); Hematocrit 36.4 % (37.0-47.0); Hemoglobin 12.7 g/dl (12.0-16.0); Imm Gran Abs Auto 0.04 X10*3/uL (0.00-0.03); Imm Gran Pct Auto 0.4 % (0.0-0.4); Lymphocytes Absolute Auto 2.5 X10*3/uL (1.2-4.9); Lymphocytes Percent Auto 27.7 % (20-40); Mean Corpuscular HGB Conc 34.9 g/dl (31.0-35.0); Mean Corpuscular Hemoglobin 32.4 pg (27.0-33.0); Mean Corpuscular Volume 92.9 fL (80.0-98.0); Mean Platelet Volume 8.9 fL (9.4-12.3); Monocytes Absolute Auto 0.7 X10*3/uL (0.1-1.2); Monocytes Percent Auto 7.4 % (2-11); Neutrophils Absolute Auto 5.5 x10*3/uL (2.0-8.3); Neutrophils Percent Auto 59.5 % (45-73); Platelet Count 272 X10*3/uL (160-400); Red Blood Count 3.92 X10*6/uL (4.20-5.50); Red Cell Distribution Width 12.3 % (11.0-16.0); White Blood Count 9.2 X10*3/uL (4.8-10.8)
[2022-05-12 14:32] LABS: Partial Thromboplastin Time 30.2 SEC (26.0-36.4)
[2022-05-12 14:34] LABS: COVID-19 Test Negative (Negative)
[2022-05-12 14:40] LABS: B Type Natriuretic Peptide < 10 pg/mL (<100); Troponin-I High Sensitivity < 3.5 ng/L (<3.5-17.0)
[2022-05-12 14:41] LABS: Alanine Aminotransferase 27 U/L (0-31); Albumin Level 4.4 g/dL (3.5-5.0); Alkaline Phosphatase 57 U/L (39-117); Anion Gap 15 (12-20); Aspartate Amino Transferase 25 U/L (5-31); Bilirubin Total 0.8 mg/dL (0.0-1.0); Blood Urea Nitrogen 7 mg/dL (9-16); Carbon Dioxide 20 mmol/L (22-29); Chloride 105 mmol/L (96-108); Creatinine Clr Calc Pharmacy 115.1; D Dimer High Sensitivity < 150 NG/ML; Estimated Glomerular Filt Rate > 60; Glucose Random 96 mg/dL (60-115); Lipase 14 U/L (8-78); Potassium 3.9 mmol/L (3.3-5.1); Sodium 136 mmol/L (135-145); Total Protein 7.3 g/dL (6.5-8.0)
[2022-05-12] MEDS: PHENobarb/Hyoscy/Atropine/Scop 10 ML ELIXIR PO (15:00)
[2022-05-12] MEDS: Lidocaine HCl Viscous 2 % 15 ML SOLUTION MUCOUS MEM (15:00)
[2022-05-12] MEDS: Magnesium Hydrox/Alum Hydrox 30 ML ORAL.SUSP PO (15:00)
[2022-05-12] MEDS: Famotidine/PF 20 MG/2 ML VIAL IVPUSH (15:01)
[2022-05-12 15:06] VITALS: BP 114/64; PULSE 79; RESP 20; O2SAT 96
[2022-05-12 16:20] VITALS: BP 114/55; PULSE 73; RESP 26; O2SAT 99
[2022-05-12 16:30] LABS: Appearance Urine Clear; Color Urine Yellow; Glucose Urine UA Negative (Negative); Leukocyte Esterase Urine Small (1+) (Negative); Nitrite Urine Negative (Negative); PH 6.5 (5.0-9.0); Specific Gravity - Urine 1.015 (1.005-1.025); Urine Blood Negative (Negative); Urine Ketones Trace mg/dL (Negative); Urine Protein Negative (Neg-Trace)
[2022-05-12 16:31] LABS: UPreg QC Valid YES; Urine Pregnancy NEGATIVE (NEGATIVE)
[2022-05-12 16:42] LABS: Amphetamine Screen Urine Not Detected (Not Detect); Bacteria Urine Trace (None Seen); Barbiturates, Urine Not Detected (Not Detect); Benzodiazepines Screen Urine Not Detected (Not Detect); Cannabinoid Screen Urine POSITIVE (Not Detect); Cocaine Screen Urine Not Detected (Not Detect); Fentanyl, urine Not Detected (Not Detect); Hyaline Casts Urine 0-2 /LPF (0-2); Opiate Screen Urine Not Detected (Not Detect); Phencyclidine Screen Urine Not Detected (Not Detect); UACC Culture Trigger YES; WBC Urine 0-5 /HPF (0-5)
[2022-05-12 17:31] VITALS: BP 113/69; PULSE 63; RESP 16; TEMP 36.8; O2SAT 98
[2022-05-12 17:31] LABS: Troponin-I High Sensitivity < 3.5 ng/L (<3.5-17.0)
[2022-05-12] MEDS: Acetaminophen 325 MG TABLET 650 MG PO (18:53)
[2022-05-12 18:55] VITALS: BP 109/61; PULSE 101; RESP 13; O2SAT 99
== END 2022-05-12 19:35 | disposition home or self-care (01) ==
PROVIDERS: Physician Assistant; Emergency Provider Emergency Medicine; PCP Pediatrics
DX: N39.0 Urinary tract infection, site not specified (principal); K21.9 Gastro-esophageal reflux disease without esophagitis; R07.89 Other chest pain; R06.02 Shortness of breath; F17.200 Nicotine dependence, unspecified, uncomplicated; Z20.822 Contact with and (suspected) exposure to COVID-19; Z79.899 Other long term (current) drug therapy; Z71.6 Tobacco abuse counseling
CPT/HCPCS: 36415; 71045; 80053; 80307; 81001; 81025; 83690; 83880; 84484; 85025; 85379; 85610; 85730; 87086; 87635; 93005; 96374; 99284

== ENCOUNTER 2022-08-15 16:40 | Emergency (ER) | payer OTHER, SELFPAY ==
--- NOTE | 2022-08-15 18:07 | ED_ITS ---
HPI - General Adult General Stated complaint: Back pain/cant control bowels Related Data Home Medications Medication Instructions Recorded Confirmed citalopram 40 mg tablet 40 mg PO DAILY 06/25/20 09/06/20 epinephrine 0.3 mg/0.3 mL 0.3 mg IM allergies 06/25/20 09/06/20 injection, auto-injector fluticasone propionate 50 1 spray intranasal DAILY PRN 06/25/20 09/06/20 mcg/actuation nasal allergy symptoms spray,suspension (Flonase Allergy Relief) naratriptan 2.5 mg tablet 2.5 mg PO DAILY PRN 06/25/20 09/06/20 topiramate 100 mg tablet 100 mg PO DAILY 06/25/20 09/06/20 trazodone 100 mg tablet 100 mg PO BEDTIME PRN 06/25/20 09/06/20 methocarbamol 750 mg tablet 750 mg PO Q6H PRN muscle spasm 07/15/21 Previous Rx's Medication Instructions Recorded nitrofurantoin 100 mg PO Q12H 5 days #10 caps 03/19/22 monohydrate/macrocrystals 100 mg capsule (Macrobid) phenazopyridine 200 mg tablet 200 mg PO TID PRN pain 6 doses #6 03/19/22 (Pyridium) tabs famotidine 20 mg tablet (Pepcid) 20 mg PO BID 10 days #20 tabs 05/12/22 nitrofurantoin 100 mg PO Q12H 7 days #14 caps 05/12/22 monohydrate/macrocrystals 100 mg capsule (Macrobid) Allergies Allergy/AdvReac Type Severity Reaction Status Date / Time ibuprofen Allergy Unknown unknown Verified 07/15/21 11:22 penicillin V Allergy Unknown unknown Verified 07/15/21 11:22 FORMERLY [facility], [facility] Past Medical History Medical History Anxiety Arthritis Depression GERD (gastroesophageal reflux disease) History of peptic ulcer disease Migraines Morbid obesity Morbid obesity with BMI of 50.0-59.9, adult PTSD (post-traumatic stress disorder) Surgical History H/O arthroscopy of shoulder H/O shoulder surgery History of arthroscopic knee surgery History of arthroscopic knee surgery Hx laparoscopic cholecystectomy Hx of tubal ligation S/P excision of lipoma S/P insertion of spinal cord stimulator S/P urological surgery Family History Family History Father Renal failure Gout CVD (cardiovascular disease) Heart attack Mother Arthritis Son No problems noted. Son No problems noted. Brother No problems noted. Sister No problems noted. Sister No problems noted. Social History Social History Alcohol intake: never Patient Tobacco Use Status: Current everyday Tobacco user Substance Use Type: Marijuana Discharge Plan Discharge Prescriptions: No Action nitrofurantoin monohyd/m-cryst [Macrobid] 100 mg capsule 100 mg PO Q12H 5 Days Qty: 10 0RF Rx Instructions: must administer with a meal/food phenazopyridine [Pyridium] 200 mg tablet 200 mg PO TID PRN (Reason: pain) Qty: 6 0RF famotidine [Pepcid] 20 mg tablet 20 mg PO BID 10 Days Qty: 20 0RF nitrofurantoin monohyd/m-cryst [Macrobid] 100 mg capsule 100 mg PO Q12H 7 Days Qty: 14 0RF Rx Instructions: must administer with a meal/food naratriptan 2.5 mg tablet 2.5 mg PO DAILY PRN trazodone 100 mg tablet 100 mg PO BEDTIME PRN citalopram 40 mg tablet 40 mg PO DAILY topiramate 100 mg tablet 100 mg PO DAILY epinephrine 0.3 mg/0.3 mL auto-injector 0.3 mg IM fluticasone propionate [Flonase Allergy Relief] 50 mcg/actuation spray,suspension 1 spray intranasal DAILY PRN (Reason: allergy symptoms) Rx Instructions: administer into each nostril
[2022-08-15 18:15] VITALS: BP 154/91; PULSE 88; RESP 16; TEMP 36.4; O2SAT 97; BMI 49.6
[2022-08-15 20:01] VITALS: BP 141/62; PULSE 87; RESP 20; TEMP 36.7; O2SAT 99
--- NOTE | 2022-08-15 20:05 | PC.NURSE ---
Patient presents endorsing [id number] lower back pain that began this afternoon after she sneezed. She's had a neurostimulating device since 2018 and reports chronic 3/10 back pain, currently 6/10 pain when not moving. Patient also reports 2 episodes of stool incontinence since sneezing this afternoon. She reports that since 2018 she's had intermittent stool incontinence.
--- NOTE | 2022-08-15 20:16 | ED_ITS ---
HPI - Back Pain/Injury General Chief Complaint: Back Pain/Injury Stated Complaint: Back pain/cant control bowels Time Seen by Provider: 08/15/22 19:59 Source: patient Mode of arrival: ambulatory Limitations: no limitations History of Present Illness HPI Narrative: Patient history of lumbar canal stenosis status post surgeries and neurostimulator in place apparently patient's niece in the car around 13 30 and had a incontinence of bowel and bladder x2 history of same in the past Related Data Home Medications Medication Instructions Recorded Confirmed citalopram 40 mg tablet 40 mg PO DAILY 06/25/20 09/06/20 epinephrine 0.3 mg/0.3 mL 0.3 mg IM allergies 06/25/20 09/06/20 injection, auto-injector fluticasone propionate 50 1 spray intranasal DAILY PRN 06/25/20 09/06/20 mcg/actuation nasal allergy symptoms spray,suspension (Flonase Allergy Relief) naratriptan 2.5 mg tablet 2.5 mg PO DAILY PRN 06/25/20 09/06/20 topiramate 100 mg tablet 100 mg PO DAILY 06/25/20 09/06/20 trazodone 100 mg tablet 100 mg PO BEDTIME PRN 06/25/20 09/06/20 methocarbamol 750 mg tablet 750 mg PO Q6H PRN muscle spasm 07/15/21 Previous Rx's Medication Instructions Recorded nitrofurantoin 100 mg PO Q12H 5 days #10 caps 03/19/22 monohydrate/macrocrystals 100 mg capsule (Macrobid) phenazopyridine 200 mg tablet 200 mg PO TID PRN pain 6 doses #6 03/19/22 (Pyridium) tabs famotidine 20 mg tablet (Pepcid) 20 mg PO BID 10 days #20 tabs 05/12/22 nitrofurantoin 100 mg PO Q12H 7 days #14 caps 05/12/22 monohydrate/macrocrystals 100 mg capsule (Macrobid) cyclobenzaprine 10 mg tablet 10 mg PO Q8H #20 tabs 08/15/22 oxycodone-acetaminophen 5 mg-325 1 tab PO Q6H PRN pain #20 tabs 08/15/22 mg tablet (Percocet) Allergies Allergy/AdvReac Type Severity Reaction Status Date / Time ibuprofen Allergy Unknown unknown Verified 07/15/21 11:22 penicillin V Allergy Unknown unknown Verified 07/15/21 11:22 Review of Systems Review of Systems: Yes all other systems are reviewed and are negative [facility] Past Medical History Medical History Anxiety Arthritis Depression GERD (gastroesophageal reflux disease) History of peptic ulcer disease Migraines Morbid obesity Morbid obesity with BMI of 50.0-59.9, adult PTSD (post-traumatic stress disorder) Surgical History H/O arthroscopy of shoulder H/O shoulder surgery History of arthroscopic knee surgery History of arthroscopic knee surgery Hx laparoscopic cholecystectomy Hx of tubal ligation S/P excision of lipoma S/P insertion of spinal cord stimulator S/P urological surgery Family History Family History Father Renal failure Gout CVD (cardiovascular disease) Heart attack Mother Arthritis Son No problems noted. Son No problems noted. Brother No problems noted. Sister No problems noted. Sister No problems noted. Social History Social History Alcohol intake: never Patient Tobacco Use Status: Current everyday Tobacco user Substance Use Type: Marijuana Advance Directives: No Advance Directives Information Provided: No Physical Exam Vital Signs: Vital Signs: Last Vital Signs Temp 98.0 F 08/15/22 20:01 Pulse 87 08/15/22 20:01 Resp 18 08/15/22 20:18 BP 141/62 H 08/15/22 20:01 Pulse Ox 99 08/15/22 20:01 O2 Del Method 08/15/22 20:01 BMI result Body Mass Index 49.6 Appearance: Alert. Oriented X3. No acute distress. Eyes: No pallor or icterus ENT: Pharynx normal. Oral Mucosa moist Neck: Normal inspection. Neck supple. CVS: Normal heart rate and rhythm. Pulses normal. Respiratory: No respiratory distress. Equal air entry bilateral, no wheezing/rales/rhonchi Abdomen: Soft and nontender. Bowel sounds are present, no mass palpable, no CVA tenderness back; diffuse tenderness sacral sensation intact rectal tone present+ Skin: Skin warm and dry. Normal skin color. Normal skin turgor. Extremities: No lower extremity edema. No calf tenderness Neuro: Oriented X 3. No motor deficit. No sensory deficit.No cerebellar signs , cranial nerves II-XII intact Medications Administered Discontinued Medications Generic Name Dose Route Start Last Admin Trade Name Kurtq PRN Reason Stop Dose Admin Cyclobenzaprine HCl 10 mg 08/15/22 20:12 08/15/22 20:18 Cyclobenzaprine Hcl 10 Mg Tablet PO 08/15/22 20:13 10 mg ONCE ONE Administration Dexamethasone 10 mg 08/15/22 20:12 08/15/22 20:17 Dexamethasone 2 Mg Tablet PO 08/15/22 20:13 10 mg ONCE ONE Administration Morphine Sulfate 10 mg 08/15/22 20:12 08/15/22 20:18 Morphine Sulfate 10 Mg/Ml Cartridge IM 08/15/22 20:13 10 mg ONCE ONE Administration Protocol Medical Decision Making Medical Decision Making MDM Narrative: Patient low back pain got worse after sneezing patient ambulatory in the ER responded to pain medication feels much better now sacral sensations intact rectal tone was normal Will discharge patient home on analgesics and muscle relaxants Differential Diagnoses: Differential diagnosis (Disc herniation, cauda equina, muscle strain) Differential Diagnosis: The differential diagnosis associated with the patient?s presentation includes: Discharge Plan Discharge Clinical Impression: Lumbar canal stenosis Patient Disposition: Home, Self-Care Instructions: Lumbar Spinal Stenosis (ED) Additional Instructions: Take pain medication and muscle relaxer as prescribed Follow-up with pain clinic Prescriptions: New cyclobenzaprine 10 mg tablet 10 mg PO Q8H Qty: 20 0RF oxycodone-acetaminophen [Percocet] 5-325 mg tablet 1 tab PO Q6H PRN (Reason: pain) Qty: 20 0RF Rx Instructions: Partial Fill upon patient request. No Action nitrofurantoin monohyd/m-cryst [Macrobid] 100 mg capsule 100 mg PO Q12H 5 Days Qty: 10 0RF Rx Instructions: must administer with a meal/food phenazopyridine [Pyridium] 200 mg tablet 200 mg PO TID PRN (Reason: pain) Qty: 6 0RF famotidine [Pepcid] 20 mg tablet 20 mg PO BID 10 Days Qty: 20 0RF nitrofurantoin monohyd/m-cryst [Macrobid] 100 mg capsule 100 mg PO Q12H 7 Days Qty: 14 0RF Rx Instructions: must administer with a meal/food naratriptan 2.5 mg tablet 2.5 mg PO DAILY PRN trazodone 100 mg tablet 100 mg PO BEDTIME PRN citalopram 40 mg tablet 40 mg PO DAILY topiramate 100 mg tablet 100 mg PO DAILY epinephrine 0.3 mg/0.3 mL auto-injector 0.3 mg IM fluticasone propionate [Flonase Allergy Relief] 50 mcg/actuation spray,suspension 1 spray intranasal DAILY PRN (Reason: allergy symptoms) Rx Instructions: administer into each nostril
[2022-08-15] MEDS: dexAMETHasone 2 MG TABLET 10 MG PO (20:17)
[2022-08-15 20:18] VITALS: RESP 18
[2022-08-15] MEDS: Morphine Sulfate 10 MG/ML CARTRIDGE IM (20:18)
[2022-08-15] MEDS: Cyclobenzaprine HCl 10 MG TABLET PO (20:18)
== END 2022-08-15 23:13 | disposition home or self-care (01) ==
PROVIDERS: Emergency Provider Internal Medicine; PCP Pediatrics
DX: M54.50 Low back pain, unspecified (principal); Z79.899 Other long term (current) drug therapy
CPT/HCPCS: 96372; 99283; 99284; J2270; J8540

== ENCOUNTER 2023-11-23 19:44 | Emergency (ER) | payer OTHER, SELFPAY ==
--- NOTE | ~2023-11-23 | US_ITS ---
EXAMINATION: Ultrasound arterial duplex lower extremity bilateral CLINICAL INFORMATION: Bilateral lower extremity pain, coldness discoloration COMPARISON: None. TECHNIQUE: Doppler color and grayscale evaluation of the arteries of the bilateral lower extremities including waveform spectral analysis FINDINGS: Right: There is increased peak systolic velocity in the right common femoral artery. Peak systolic velocities are otherwise normal. There is normal triphasic waveform throughout. No visible stenosis/narrowing. Left: Peak Systolic velocities are normal throughout with normal triphasic waveforms. No visible stenosis or narrowing. US/US arterial duplex LE IMPRESSION: Right: Elevated peak systolic velocity in the right common femoral artery questionable for mild atherosclerotic disease. Otherwise unremarkable exam. Left Normal left lower extremity.
--- NOTE | 2023-11-23 19:46 | ECG_ITS ---
Test Reason : CHEST PAIN Blood Pressure : / mmHG Vent. Rate : 110 BPM Atrial Rate : 110 BPM P-R Int : 138 ms QRS Dur : 080 ms QT Int : 344 ms P-R-T Axes : 068 086 076 degrees QTc Int : 465 ms Sinus tachycardia Otherwise normal ECG When compared with ECG of 12-MAY-2022 13:08, No significant change was found Referred By: Marta Payne Electronically Signed By:EMILY MERCADO MD
--- NOTE | 2023-11-23 19:59 | ED_ITS ---
HPI - General Adult General Chief complaint: Extremity Problem Stated complaint: Chest pain/toes are blue/Dizziness Time Seen by Provider: 11/24/23 00:32 Source: patient Mode of arrival: ambulatory Limitations: no limitations History of Present Illness HPI narrative: Patient obese with history of ZULY on CPAP borderline hypertension at around 19:00 noticed sharp chest pain lasted for few minutes immediately after that patient noticed a lower extremities pain with bluish discoloration of the toes left more than right lasted only for few minutes with cold feeling after arrival patient when examined the triage area at normal distal pulses normal coloration no history of similar pain in the past patient has arterial Doppler done prior to my evaluation which showed normal flow no history of Raynaud's phenomenon in the past Related Data Home Medications Medication Instructions Recorded Confirmed citalopram 40 mg tablet 40 mg PO DAILY 06/25/20 09/06/20 epinephrine 0.3 mg/0.3 mL 0.3 mg IM allergies 06/25/20 09/06/20 injection, auto-injector fluticasone propionate 50 1 spray intranasal DAILY PRN 06/25/20 09/06/20 mcg/actuation nasal allergy symptoms spray,suspension (Flonase Allergy Relief) naratriptan 2.5 mg tablet 2.5 mg PO DAILY PRN 06/25/20 09/06/20 topiramate 100 mg tablet 100 mg PO DAILY 06/25/20 09/06/20 trazodone 100 mg tablet 100 mg PO BEDTIME PRN 06/25/20 09/06/20 methocarbamol 750 mg tablet 750 mg PO Q6H PRN muscle spasm 07/15/21 Previous Rx's Medication Instructions Recorded nitrofurantoin 100 mg PO Q12H 5 days #10 caps 03/19/22 monohydrate/macrocrystals 100 mg capsule (Macrobid) phenazopyridine 200 mg tablet 200 mg PO TID PRN pain 6 doses #6 03/19/22 (Pyridium) tabs famotidine 20 mg tablet (Pepcid) 20 mg PO BID 10 days #20 tabs 05/12/22 nitrofurantoin 100 mg PO Q12H 7 days #14 caps 05/12/22 monohydrate/macrocrystals 100 mg capsule (Macrobid) cyclobenzaprine 10 mg tablet 10 mg PO Q8H #20 tabs 08/15/22 oxycodone-acetaminophen 5 mg-325 1 tab PO Q6H PRN pain #20 tabs 08/15/22 mg tablet (Percocet) aspirin 81 mg tablet,delayed 81 mg PO DAILY #90 tabs 11/24/23 release (Angelica Low Dose Aspirin) Allergies Allergy/AdvReac Type Severity Reaction Status Date / Time ibuprofen Allergy Unknown unknown Verified 11/23/23 20:05 penicillin V Allergy Unknown unknown Verified 11/23/23 20:05 latex Allergy Hives Verified 11/23/23 20:05 Review of Systems 2 Review of Systems: Yes all other systems are reviewed and are negative [facility] Past Medical History Medical History Anxiety Arthritis Depression GERD (gastroesophageal reflux disease) History of peptic ulcer disease Migraines Morbid obesity Morbid obesity with BMI of 50.0-59.9, adult PTSD (post-traumatic stress disorder) Surgical History H/O arthroscopy of shoulder H/O shoulder surgery History of arthroscopic knee surgery History of arthroscopic knee surgery Hx laparoscopic cholecystectomy Hx of tubal ligation S/P excision of lipoma S/P insertion of spinal cord stimulator S/P urological surgery Family History Family History Father Renal failure Gout CVD (cardiovascular disease) Heart attack Mother Arthritis Son No problems noted. Son No problems noted. Brother No problems noted. Sister No problems noted. Sister No problems noted. Social History Social History Alcohol intake: never Patient Tobacco Use Status: Current everyday Tobacco user Substance Use Type: Marijuana Advance Directives: No Advance Directives Information Provided: No Physical Exam ED Vital Signs: Vital Signs - 24 hr 11/23/23 20:06 11/24/23 01:02 Temperature 98.2 F 98.4 F Pulse Rate 112 H 89 Respiratory Rate 18 16 Blood Pressure 121/87 138/71 Pulse Oximetry 97 97 Oxygen Delivery Method Room Air Room Air BMI result Body Mass Index 49.4 Appearance: Alert. Oriented X3. No acute distress. Eyes: PERRLA, No Nystagmus ENT: Pharynx normal. Oral Mucosa moist Neck: Normal inspection. Neck supple. CVS: Normal heart rate and rhythm. Pulses normal. Respiratory: No respiratory distress. Equal air entry bilateral, no wheezing/rales/rhonchi Abdomen: Soft and nontender. Bowel sounds are present, no mass palpable, no CVA tenderness Skin: Skin warm and dry. Normal skin color. Normal skin turgor. Extremities: No lower extremity edema. No calf tenderness dorsalis pedis 2+ bilateral normal coloration of the toes no cold feeling Neuro: Oriented X 3. No motor deficit. No sensory deficit.No cerebellar signs , cranial nerves II-XII intact Course Course Course Narrative: This is an RME: Additional HPI, ROS, PE not included below will be deferred to primary provider. Patient is a 48-year-old female who presents emergency department for evaluation of Intermittent chest pain (resolved at this time), intermittent discoloration to the feet and cold sensation to the feet, worse while dependent and intermittent numbness. Plan: Labs, EKG Medical Decision Making Medical Decision Making [facility] Narrative: Patient with transient vasospastic disease arterial Doppler good blood flow no discoloration temperature normal likely patient has possible Raynaud's phenomenon for now will give her 81 mg aspirin daily and follow with PCP Differential Diagnosis Differential Diagnoses: The differential diagnosis associated with the presentation includes Peripheral arterial disease/ arterial occlusion/Raynaud's Admission/Observation Consideration of admission/observation: Escalation of care including admission/observation considered Lab Data [facility] Lab Attestation statement: I reviewed the patient's lab results. 11/23/23 20:41 11/23/23 20:41 Labs: Lab Results 11/23/23 Range/Units 20:41 WBC 10.8 (4.8-10.8) X10*3/uL RBC 4.19 L (4.20-5.50) X10*6/uL Hgb 13.5 (12.0-16.0) g/dl Hct 38.1 (37.0-47.0) % MCV 90.9 (80.0-98.0) fL MCH 32.2 (27.0-33.0) pg MCHC 35.4 H (31.0-35.0) g/dl RDW 12.8 (11.0-16.0) % Plt Count 285 (160-400) X10*3/uL MPV 8.6 L (9.4-12.3) fL Immature Gran % (Auto) 0.5 H (0.0-0.4) % Neut % (Auto) 59.4 (45-73) % Lymph % (Auto) 30.7 (20-40) % [place] % (Auto) 6.5 (2-11) % Eos % (Auto) 2.3 (0-4) % Baso % (Auto) 0.6 (0-2) % Lymph # (Auto) 3.3 (1.2-4.9) X10*3/uL [place] # (Auto) 0.7 (0.1-1.2) X10*3/uL Eos # (Auto) 0.3 (0.0-0.4) X10*3/uL Baso # (Auto) 0.1 (0.0-0.2) X10*3/uL Abs Immat Gran (auto) 0.05 H (0.00-0.03) X10*3/uL Absolute Neuts (auto) 6.4 (2.0-8.3) x10*3/uL Absolute Nucleated RBC 0.000 (0.0-0.012) X10*3/uL Nucleated RBC % (auto) 0.0 (0.0-0.2) /100WBC PT 11.8 (11.1-13.3) SEC INR 1.0 (0.9-1.1) Sodium 138 (135-145) mmol/L Potassium 3.6 (3.3-5.1) mmol/L Chloride 104 (96-108) mmol/L Carbon Dioxide 24 (22-29) mmol/L Anion Gap 14 (12-20) BUN 7 L (9-16) mg/dL Creatinine 0.90 (0.5-1.4) mg/dL Estim Creat Clear Calc 98.9 Estimated GFR > 60 Random Glucose 107 (60-115) mg/dL Calcium 9.4 (8.4-10.2) mg/dL Total Bilirubin 0.6 (0.0-1.0) mg/dL AST 32 H (5-31) U/L ALT 42 H (0-31) U/L Alkaline Phosphatase 59 (39-117) U/L Troponin I High Sens < 2.7 (<3.5-17.0) ng/L Total Protein 7.4 (6.5-8.0) g/dL Albumin 4.3 (3.5-5.0) g/dL Independent Interpretation I performed an independent interpretation of an: EKG Interpretation: Sinus tachycardia heart rate 110 beats per minute normal interval normal axis no acute ST T wave changes Radiology Impression Discussion of test interpretation with radiology: I have reviewed the radiologist's reading. Discharge Plan Discharge Clinical Impression: Raynaud's phenomenon Patient Disposition: Home, Self-Care Instructions: Raynaud Disease (ED) Additional Instructions: It is possible that you have Raynaud's phenomena Arterial Doppler is normal with good blood flow Take 81 mg aspirin daily Report to the ER if worsening of the bluish discoloration or pain Follow with PCP Prescriptions: New aspirin [Angelica Low Dose Aspirin] 81 mg tablet,delayed release (DR/EC) 81 mg PO DAILY Qty: 90 0RF No Action cyclobenzaprine 10 mg tablet 10 mg PO Q8H Qty: 20 0RF oxycodone-acetaminophen [Percocet] 5-325 mg tablet 1 tab PO Q6H PRN (Reason: pain) Qty: 20 0RF Rx Instructions: Partial Fill upon patient request. nitrofurantoin monohyd/m-cryst [Macrobid] 100 mg capsule 100 mg PO Q12H 5 Days Qty: 10 0RF Rx Instructions: must administer with a meal/food phenazopyridine [Pyridium] 200 mg tablet 200 mg PO TID PRN (Reason: pain) Qty: 6 0RF famotidine [Pepcid] 20 mg tablet 20 mg PO BID 10 Days Qty: 20 0RF nitrofurantoin monohyd/m-cryst [Macrobid] 100 mg capsule 100 mg PO Q12H 7 Days Qty: 14 0RF Rx Instructions: must administer with a meal/food naratriptan 2.5 mg tablet 2.5 mg PO DAILY PRN trazodone 100 mg tablet 100 mg PO BEDTIME PRN citalopram 40 mg tablet 40 mg PO DAILY topiramate 100 mg tablet 100 mg PO DAILY epinephrine 0.3 mg/0.3 mL auto-injector 0.3 mg IM fluticasone propionate [Flonase Allergy Relief] 50 mcg/actuation spray,suspension 1 spray intranasal DAILY PRN (Reason: allergy symptoms) Rx Instructions: administer into each nostril
[2023-11-23 20:06] VITALS: BP 121/87; PULSE 112; RESP 18; TEMP 36.8; O2SAT 97; BMI 49.4
[2023-11-23 20:45] LABS: MANUAL DIFF FLAG NO
[2023-11-23 20:47] LABS: Basophils Absolute Auto 0.1 X10*3/uL (0.0-0.2); Basophils Percent Auto 0.6 % (0-2); Eosinophils Absolute Auto 0.3 X10*3/uL (0.0-0.4); Eosinophils Percent Auto 2.3 % (0-4); Hematocrit 38.1 % (37.0-47.0); Hemoglobin 13.5 g/dl (12.0-16.0); Imm Gran Abs Auto 0.05 X10*3/uL (0.00-0.03); Imm Gran Pct Auto 0.5 % (0.0-0.4); Lymphocytes Absolute Auto 3.3 X10*3/uL (1.2-4.9); Lymphocytes Percent Auto 30.7 % (20-40); Mean Corpuscular HGB Conc 35.4 g/dl (31.0-35.0); Mean Corpuscular Hemoglobin 32.2 pg (27.0-33.0); Mean Corpuscular Volume 90.9 fL (80.0-98.0); Mean Platelet Volume 8.6 fL (9.4-12.3); Monocytes Absolute Auto 0.7 X10*3/uL (0.1-1.2); Monocytes Percent Auto 6.5 % (2-11); Neutrophils Absolute Auto 6.4 x10*3/uL (2.0-8.3); Neutrophils Percent Auto 59.4 % (45-73); Platelet Count 285 X10*3/uL (160-400); Red Blood Count 4.19 X10*6/uL (4.20-5.50); Red Cell Distribution Width 12.8 % (11.0-16.0); White Blood Count 10.8 X10*3/uL (4.8-10.8)
[2023-11-23 20:58] LABS: Prothrombin Time 11.8 SEC (11.1-13.3)
[2023-11-23 21:00] LABS: Alanine Aminotransferase 42 U/L (0-31); Albumin Level 4.3 g/dL (3.5-5.0); Alkaline Phosphatase 59 U/L (39-117); Anion Gap 14 (12-20); Aspartate Amino Transferase 32 U/L (5-31); Bilirubin Total 0.6 mg/dL (0.0-1.0); Blood Urea Nitrogen 7 mg/dL (9-16); Calcium 9.4 mg/dL (8.4-10.2); Carbon Dioxide 24 mmol/L (22-29); Chloride 104 mmol/L (96-108); Creatinine Clr Calc Pharmacy 98.9; Estimated Glomerular Filt Rate > 60; Glucose Random 107 mg/dL (60-115); Potassium 3.6 mmol/L (3.3-5.1); Sodium 138 mmol/L (135-145); Total Protein 7.4 g/dL (6.5-8.0)
[2023-11-23 21:11] LABS: Troponin-I High Sensitivity < 2.7 ng/L (<3.5-17.0)
[2023-11-24 01:02] VITALS: BP 138/71; PULSE 89; RESP 16; TEMP 36.9; O2SAT 97
[2023-11-24 01:21] VITALS: BP 120/76; PULSE 81; RESP 18; TEMP 36.4; O2SAT 98
== END 2023-11-24 01:22 | disposition home or self-care (01) ==
PROVIDERS: Nurse Practitioner Family; Emergency Provider Internal Medicine; PCP Family Medicine
DX: I73.00 Raynaud's syndrome without gangrene (principal); I10 Essential (primary) hypertension; G47.33 Obstructive sleep apnea (adult) (pediatric); Z99.89 Dependence on other enabling machines and devices
CPT/HCPCS: 36415; 80053; 84484; 85025; 85610; 93005; 93925; 99284

== ENCOUNTER → 2023-11-23 19:46 | Outpatient (BNV) | payer OTHER, SELFPAY | PROVIDERS: Emergency Provider Internal Medicine; PCP Family Medicine; Visit Provider Internal Medicine Cardiovascular Disease | DX: R07.9 Chest pain, unspecified (principal) | CPT/HCPCS: 93010 ==